=== PATIENT | female | born 1980 | race Caucasian/White ===

== ENCOUNTER 2017-01-24 04:09 | Emergency (ER) | payer BC ==
[2017-01-24] MEDS ORDERED: Ketorolac Tromethamine 30 MG/ML VIAL ONE (04:23)
[2017-01-24] MEDS ORDERED: Morphine 4 MG/ML VIAL ONE (04:38)
[2017-01-24 04:43] LABS: #Basophils 0.1 thou/uL (0.0-0.2); #Eosinphils 0.4 thou/uL (0.0-0.7); #Lymphocytes 3.7 thou/uL (1.20-3.40); #Monocytes 0.7 thou/uL (0.11-0.59); #Neutrophils 4.7 thou/uL (1.40-6.50); %Basophils 0.8 % (0.0-1.0); %Lymphocytes 38.5 % (21.0-51.0); Hematocrit 42.3 % (36.0-47.0); Mean Platelet Volume 7.7 fL (7.4-10.4); Red Blood Cell (RBC) Count 4.55 mill/uL (4.20-5.40); White Blood Cell (WBC) Count 9.5 thou/uL (4.8-10.8)
[2017-01-24] MEDS ORDERED: Ondansetron HCl/PF 4 MG/2 ML Vial ONE (04:47)
[2017-01-24 05:26] LABS: ALT (SGPT) 15 U/L (8-55); AST (SGOT) 24 U/L (5-34); Alkaline Phosphatase 95 U/L (40-150); Anion Gap 12 mmol/L (10-20); BUN (Urea Nitrogen) 10 mg/dL (7.0-18.7); Bilirubin, Total Less than 0.2 mg/dL (0.2-1.2); Calc. Creatinine Clearance 0 mL/min (70-130); Calcium 9.2 mg/dL (7.8-10.44); Carbon Dioxide 23 mmol/L (22-29); Chloride 106 mmol/L (98-107); Estimated GFR-MDRD 67; Globulin 3.4 g/dL (2.4-3.5); Protein, Total 7.4 g/dL (6.0-8.3)
[2017-01-24 06:04] LABS: Bilirubin Negative (Negative); Blood, Urine Large (Negative); Glucose, Urine (Dipstick) Negative (Negative); Ketone, Urine Negative (Negative); Nitrite Negative (Negative); Protein, Urine (Dipstick) Negative (Neg-Trace); Urobilinogen 0.2 mg/dL (0.2-1.0)
[2017-01-24 06:07] LABS: Bacteria/HPF None Seen HPF (None Seen); Hyaline Casts/LPF 0-3 HYALINE CAST LPF (0-3 Hyaline); RBC/HPF 21-50 HPF (0-3); Squamous Epithelial 0-3 HPF (0-3); WBC/HPF 0-3 HPF (0-3)
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
== END 2017-01-24 06:36 | disposition home or self-care (01) ==
LOC: ERS 04:09
DX: N23 Unspecified renal colic (principal); G43.909 Migraine, unspecified, not intractable, without status migrainosus; F32.9 Major depressive disorder, single episode, unspecified; Z79.899 Other long term (current) drug therapy
CPT/HCPCS: 76775; 80053; 81003; 81015; 85025; 96361; 96374; 96375; J1885; J2270; J2405

== ENCOUNTER 2020-03-18 20:25 | Emergency (ER) | payer BC, OTHER ==
[~2020-03-18 20:25] MED LIST: Iopamidol-370 76% 500 ML 1 ML ONE
[2020-03-18] MEDS ORDERED: CEFAZOLIN 1 GM VIAL ONE (20:34)
[2020-03-18] MEDS ORDERED: Fentanyl 100 MCG/2 ML VIAL ONE (20:46)
[2020-03-18 20:55] LABS: #Basophils 0.1 thou/uL (0.0-0.2); #Eosinphils 0.2 thou/uL (0.0-0.7); #Lymphocytes 3.6 thou/uL (1.20-3.40); #Monocytes 0.9 thou/uL (0.11-0.59); #Neutrophils 7.1 thou/uL (1.40-6.50); %Basophils 0.5 % (0.0-1.0); %Eosinophils 1.5 % (0.0-10.0); %Monocytes 7.8 % (0.0-10.0); %Neutrophils 60.3 % (42.0-75.0); Hemoglobin 13.2 g/dL (12.0-16.0); Mean Corpuscular HGB CONC 33.8 g/dL (32.0-36.0); Mean Corpuscular Hemoglobin 30.8 pg (27.0-31.0); Mean Corpuscular Volume 91.1 fL (78.0-98.0); Mean Platelet Volume 8.6 fL (7.4-10.4); Platelet Count 173 thou/uL (130-400); RBC Distribution Width 12.1 % (11.5-14.5); Red Blood Cell (RBC) Count 4.28 mill/uL (4.20-5.40); White Blood Cell (WBC) Count 11.8 thou/uL (4.8-10.8)
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
[2020-03-18 21:15] LABS: ALT (SGPT) 21 U/L (8-55); AST (SGOT) 22 U/L (5-34); Albumin 4.1 g/dL (3.5-5.0); Alkaline Phosphatase 78 U/L (40-110); Anion Gap 13 mmol/L (10-20); BUN (Urea Nitrogen) 15 mg/dL (7.0-18.7); Bilirubin, Total 0.3 mg/dL (0.2-1.2); Calc. Creatinine Clearance 0 mL/min (70-130); Calcium 9.1 mg/dL (7.8-10.44); Carbon Dioxide 23 mmol/L (22-29); Chloride 106 mmol/L (98-107); Globulin 2.9 g/dL (2.4-3.5); Glucose 129 mg/dL (70-105); Magnesium 1.9 mg/dL (1.6-2.6); Potassium 3.7 mmol/L (3.5-5.1); Sodium 138 mmol/L (136-145)
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
[2020-03-18] MEDS ORDERED: Lidocaine 1% (PF) 30 ML VIAL ONE (22:09)
[2020-03-18] MEDS ORDERED: Morphine 4 MG/ML VIAL ONE (22:18)
[2020-03-18] MEDS ORDERED: Ketorolac Tromethamine 30 MG/ML VIAL ONE (22:18)
[2020-03-18] MEDS ORDERED: Ondansetron PF 4 MG/2 ML Vial ONE ×2 (23:28→23:29)
--- NOTE | 2020-03-20 18:41 | EKG ---
Test Reason : Blood Pressure : / mmHG Vent. Rate : 077 BPM Atrial Rate : 077 BPM P-R Int : 142 ms QRS Dur : 090 ms QT Int : 394 ms P-R-T Axes : 058 075 051 degrees QTc Int : 445 ms Normal sinus rhythm Normal ECG Confirmed by JEANNIE SNEED ([id number]), content editor LIONEL HUFFMAN ([id number]) on 03/20/2020 6:40:57 PM Referred By: Confirmed By:JEANNIE SNEED
== END 2020-03-18 23:52 | disposition home or self-care (01) ==
LOC: ERS 20:25
DX: S06.0X0A Concussion without loss of consciousness, initial encounter (principal); S51.012A Laceration without foreign body of left elbow, initial encounter; S41.112A Laceration without foreign body of left upper arm, initial encounter; S80.12XA Contusion of left lower leg, initial encounter; S80.11XA Contusion of right lower leg, initial encounter; M25.532 Pain in left wrist; M25.531 Pain in right wrist; R10.819 Abdominal tenderness, unspecified site; R19.04 Left lower quadrant abdominal swelling, mass and lump; G43.909 Migraine, unspecified, not intractable, without status migrainosus; J45.909 Unspecified asthma, uncomplicated; Z79.899 Other long term (current) drug therapy; V89.9XXA Person injured in unspecified vehicle accident, initial encounter
CPT/HCPCS: 12002; 36415; 70450; 71045; 72125; 74177; 80053; 83735; 84484; 85025; 93005; 96365; 96375; 96376; G0390; J0690; J1885; J2001; J2270; J2405; J3010; Q9967